=== PATIENT | male | born 1935 | race Caucasian/White ===

== ENCOUNTER 2018-10-06 21:54 | Outpatient (REF) | payer MEDICARE, SELFPAY ==
[2018-10-06 22:48] LABS: Abs Immature Grans 0.01 k/cumm (0.0-0.09); Absolute Basophil Count 0.02 k/cumm (0.0-0.2); Absolute Eosinophil Count 0.12 k/cumm (0.0-0.7); Absolute Lymphocyte Count 1.15 k/cumm (1.2-3.4); Absolute Monocyte Count 0.49 k/cumm (0.11-0.7); Absolute Neutrophil Count 2.49 k/cumm (1.2-6.7); Basophils % 0.5; Eosinophils % 2.8; HCT 41.4 % (40.0-50.0); HGB 14.4 g/dL (13.5-17.5); Immature Grans % 0.2; Lymphocytes % 26.9; Mean Corp. HGB Concentration 34.8 g/dL (32.0-36.0); Mean Corpuscular Hemoglobin 33.4 pg (27.0-33.0); Mean Corpuscular Volume 96.1 fL (80-95); Monocytes % 11.4; Neutrophils % 58.2; Platelet Count 154 x1000/uL (130-400); RBC 4.31 m/cumm (4.50-6.00); RBC Distribution Width 12.4 % (11.8-14.1); White Blood Cell Count 4.28 k/cumm (4.4-10.8)
[2018-10-06 23:18] LABS: ALT 27 U/L (12-78); AST 21 U/L (15-37); Alkaline Phosphatase 69 U/L (46-116); Anion Gap 8.2 mmol/L (3-11); BUN 28 mg/dL (7-18); Bilirubin, Total 1.3 mg/dL (0.2-1.0); CO2 27.8 mmol/L (21.0-32.0); CREATININE 1.34 mg/dL (0.70-1.30); Calcium 9.8 mg/dL (8.5-10.1); Chloride 107 mmol/L (98-107); Cholesterol 176 mg/dL (50-200); Estimated GFR 51.03 (mL/min/1.73m2); Ferritin 102 ng/mL (8-388); Glucose 86 mg/dL (70-100); HDL Cholesterol 64 mg/dL (40-60); LDL CHOLESTEROL 103 mg/dL (<100); Potassium 5.2 mmol/L (3.5-5.1); Sodium 143 mmol/L (136-145); Total Protein 6.7 g/dL (6.4-8.2); Triglyceride 94 mg/dL (30-150)
[2018-10-10 10:13] LABS: PSA, Diagnostic 0.6 ng/ml (0-6.5)
== END 2018-10-06 22:14 ==
LOC: NCHCN 21:54
PROVIDERS: PCP Family Medicine; Visit Provider Family Medicine
DX: E78.5 Hyperlipidemia, unspecified (principal); I10 Essential (primary) hypertension; D64.9 Anemia, unspecified; K22.70 Barrett's esophagus without dysplasia; D07.5 Carcinoma in situ of prostate
CPT/HCPCS: 80053; 80061; 83721; 82728; 84153; 85025

== ENCOUNTER 2019-03-22 13:58 | Outpatient (REF) | payer MEDICARE, SELFPAY ==
[2019-03-22 21:31] LABS: Abs Immature Grans 0.04 k/cumm (0.0-0.09); Absolute Basophil Count 0.02 k/cumm (0.0-0.2); Absolute Eosinophil Count 0.16 k/cumm (0.0-0.7); Absolute Lymphocyte Count 1.07 k/cumm (1.2-3.4); Absolute Monocyte Count 0.59 k/cumm (0.11-0.7); Absolute Neutrophil Count 4.85 k/cumm (1.2-6.7); Basophils % 0.3; Eosinophils % 2.4; HCT 40.5 % (40.0-50.0); HGB 14.3 g/dL (13.5-17.5); Immature Grans % 0.6; Lymphocytes % 15.9; Mean Corp. HGB Concentration 35.3 g/dL (32.0-36.0); Mean Corpuscular Hemoglobin 33.3 pg (27.0-33.0); Mean Corpuscular Volume 94.4 fL (80-95); Monocytes % 8.8; Platelet Count 162 x1000/uL (130-400); RBC 4.29 m/cumm (4.50-6.00); RBC Distribution Width 12.3 % (11.8-14.1); White Blood Cell Count 6.73 k/cumm (4.4-10.8)
[2019-03-22 21:47] LABS: ALT 19 U/L (12-78); Albumin 3.9 g/dL (3.4-5.0); Alkaline Phosphatase 71 U/L (46-116); Anion Gap 7.7 mmol/L (3-11); BUN 22 mg/dL (7-18); Bilirubin, Total 0.7 mg/dL (0.2-1.0); CO2 29.3 mmol/L (21.0-32.0); CREATININE 0.99 mg/dL (0.70-1.30); Calcium 9.3 mg/dL (8.5-10.1); Chloride 103 mmol/L (98-107); Glucose 79 mg/dL (70-100); Potassium 4.3 mmol/L (3.5-5.1); Sodium 140 mmol/L (136-145); TSH (W/Ref FT4) 1.85 uIU/mL (0.358-3.74); Total Protein 6.5 g/dL (6.4-8.2)
[2019-03-22 22:31] LABS: AST 21 U/L (15-37)
== END 2019-03-22 14:18 ==
LOC: NCHCN 13:58
PROVIDERS: PCP Family Medicine; Visit Provider Family Medicine
DX: D64.9 Anemia, unspecified (principal); R55 Syncope and collapse
CPT/HCPCS: 80053; 84443; 85025

== ENCOUNTER 2019-10-10 13:55 | Outpatient (REF) | payer MEDICARE, SELFPAY ==
[2019-10-12 12:10] LABS: PSA, Screening 0.6 ng/mL (0.0-6.5)
== END 2019-10-10 14:15 ==
LOC: NCHCN 13:55
PROVIDERS: PCP Family Medicine; Visit Provider Family Medicine
DX: Z12.5 Encounter for screening for malignant neoplasm of prostate (principal)
CPT/HCPCS: 84153

== ENCOUNTER 2020-12-25 14:35 | Outpatient (REF) | payer MEDICARE, SELFPAY ==
[2020-12-25 22:42] LABS: ALT 35 U/L (16-63); AST 30 U/L (15-37); Albumin 3.9 g/dL (3.4-5.0); Alkaline Phosphatase 83 U/L (46-116); Anion Gap 8.6 mmol/L (3-11); BUN 24 mg/dL (7-18); Bilirubin, Total 0.9 mg/dL (0.2-1.0); CO2 25.4 mmol/L (21.0-32.0); Calcium 8.7 mg/dL (8.5-10.1); Calculated LDL 70 mg/dL (<100); Chloride 107 mmol/L (98-107); Cholesterol 174 mg/dL (<200); Glucose 103 mg/dL (74-106); HDL Cholesterol 63 mg/dL (40-60); Potassium 4.1 mmol/L (3.5-5.1); Sodium 141 mmol/L (136-145); Total Protein 6.4 g/dL (6.4-8.2); Triglyceride 205 mg/dL (<150)
== END 2020-12-25 14:36 | disposition home or self-care (01) ==
LOC: NCHCN 14:35
PROVIDERS: PCP Family Medicine; Visit Provider Family Medicine
DX: Z00.00 Encounter for general adult medical examination without abnormal findings (principal); I10 Essential (primary) hypertension; E78.5 Hyperlipidemia, unspecified
CPT/HCPCS: 80053; 80061

== ENCOUNTER 2022-01-05 12:08 | Outpatient (REF) | payer MEDICARE, SELFPAY ==
[2022-01-05 20:55] LABS: ALT 33 U/L (16-63); BUN 27 mg/dL (7-18); Calcium 8.8 mg/dL (8.5-10.1); Calculated LDL 91 mg/dL (<100); Chloride 108 mmol/L (98-107); Cholesterol 182 mg/dL (<200); Glucose 123 mg/dL (74-106); HDL Cholesterol 60 mg/dL (40-60); Potassium 3.8 mmol/L (3.5-5.1); Sodium 142 mmol/L (136-145); Triglyceride 156 mg/dL (<150)
== END 2022-01-05 12:09 | disposition home or self-care (01) ==
LOC: NCHCN 12:08
PROVIDERS: PCP Family Medicine; Visit Provider Family Medicine
DX: E78.5 Hyperlipidemia, unspecified (principal)
CPT/HCPCS: 80048; 80061; 84460

== ENCOUNTER 2024-02-22 18:30 | Outpatient (REF) | payer MEDICARE, SELFPAY ==
[2024-02-22 21:26] LABS: HCT 42.7 % (40.0-50.0); HGB 14.6 g/dL (13.5-17.5); MCHC 34.2 % (32.0-36.0); MCV 97 fL (80-95); MPV 9.1 fL (8.0-11.0); Platelet Count 175 10^3/uL (130-400); RBC 4.42 10^6/uL (4.36-5.78); RDW 12.4 % (11.8-14.1); RDW-SD 44.4 fL; WBC 11.37 10^3/uL (4.4-10.8)
[2024-02-22 21:48] LABS: ALT 19 U/L (16-63); AST 18 U/L (15-37); Albumin 3.5 g/dL (3.4-5.0); Alkaline Phosphatase 89 U/L (46-116); BUN 20 mg/dL (7-18); CREATININE 1.1 mg/dL (0.70-1.30); Calcium 9.2 mg/dL (8.5-10.1); Calculated LDL 67 mg/dL (<100); Chloride 103 mmol/L (98-107); Cholesterol 160 mg/dL (<200); Estimated GFR 64.57 (mL/min/1.73m2); Glucose 133 mg/dL (74-106); HDL Cholesterol 68 mg/dL (40-60); Sodium 138 mmol/L (136-145); Total Protein 6.8 g/dL (6.4-8.2); Triglyceride 125 mg/dL (<150)
== END 2024-02-22 18:31 | disposition home or self-care (01) ==
LOC: NCHCN 18:30
PROVIDERS: PCP Family Medicine; Visit Provider Family Medicine
DX: R63.4 Abnormal weight loss (principal); E78.5 Hyperlipidemia, unspecified
CPT/HCPCS: 80053; 80061; 85027; 84443